=== PATIENT | male | born 1990 | race Caucasian/White ===

== ENCOUNTER 2016-11-06 01:20 | Emergency (ER) | payer OTHER, SELFPAY ==
[~2016-11-06] VITALS: Ht 188 cm; Wt 89.3 kg
[2016-11-06] MEDS ORDERED: OXYcodone/APAP 10/325MG TABLET ONE (02:59)
[2016-11-06] MEDS ORDERED: OXYcodone/APAP 10/325MG TABLET PO ONE (03:00)
[2016-11-06 03:32] VITALS: BP 138/82
== END 2016-11-06 03:33 | disposition home or self-care (01) ==
LOC: ED 02:01
DX: S62.326A Displaced fracture of shaft of fifth metacarpal bone, right hand, initial encounter for closed fracture (principal); W22.8XXA Striking against or struck by other objects, initial encounter; Y93.89 Activity, other specified; Y92.89 Other specified places as the place of occurrence of the external cause; Y99.8 Other external cause status
CPT/HCPCS: 29125; 99284